=== PATIENT | female | born 1960 | race Caucasian/White ===

== ENCOUNTER 2023-12-08 17:49 | Inpatient (IN) | payer MEDICAID ==
[~2023-12-08] VITALS: Ht 160 cm; Wt 62.1 kg
[2023-12-08] MEDS ORDERED: Z GUARD REMEDY 4 OZ OINT TP PRN (18:00)
[2023-12-08] MEDS ORDERED: ONDANSETRON HCL/PF 4 MG/2 ML VIAL IVP PRN (18:00)
[2023-12-08] MEDS ORDERED: MAG HYDROX/AL HYDROX/SIMETH 30 ML UDC PO PRN (18:00)
[2023-12-08] MEDS ORDERED: MAGNESIUM HYDROXIDE 30 ML UDC PO PRN (18:00)
[2023-12-08 18:30] VITALS: BP 163/79; TEMP 97.8; O2SAT 97
[2023-12-08] MEDS: IV NS 0.9% 1,000 ML IV PRN (18:52)
[2023-12-08] MEDS: CLONIDINE HCL 0.1 MG TABLET PO PRN (18:52)
[2023-12-08 19:45] LABS: BASOPHILS % (AUTO) 0.7 % (0.0-2.0); EOSINOPHILS # (AUTO) 0.2 K/uL (0.0-0.7); HEMATOCRIT 44 % (33-45); HEMOGLOBIN 14.2 g/dL (11.5-14.8); LYMPHOCYTES # (AUTO) 1.9 K/uL (0.8-4.8); LYMPHOCYTES % (AUTO) 27.4 % (20.0-44.0); MEAN CORPUSCULAR HEMOGLOBIN 28 PG (26.0-33.0); MEAN CORPUSCULAR HGB CONC 33 g/dl (31.0-36.0); MEAN CORPUSCULAR VOLUME 85 fL (82-100); MONOCYTES # (AUTO) 0.6 K/uL (0.1-1.30); MONOCYTES % (AUTO) 8.9 % (2.0-12.0); NEUTROPHILS # (AUTO) 4.2 K/uL (1.8-8.9); PLATELET COUNT (AUTO) 346 K/uL (150-450); RED CELL DISTRIBUTION WIDTH 14.2 % (11.5-15.0)
[2023-12-08 19:52] LABS: CALCIUM, SERUM 9.4 mg/dL (8.5-10.1); CREATININE 0.6 mg/dL (0.6-1.3); POTASSIUM 3.2 mmol/L (3.5-5.1)
[2023-12-08 20:22] VITALS: BP 151/77; TEMP 97.5; O2SAT 96
[2023-12-08] MEDS: ENOXAPARIN SODIUM 40 MG/0.4 ML DISP.SYRIN SQ SCH (21:00)
[2023-12-08 21:07] LABS: APPEARANCE,URINE SLIGHTLY CLOUDY (CLEAR); BILIRUBIN,URINE NEGATIVE (NEGATIVE); BLOOD, URINE 3+ Ery/uL (NEGATIVE); COLOR,URINE YELLOW (YELLOW); KETONES,URINE TRACE mg/dL (NEGATIVE); LEUKOCYTE ESTERASE ,URINE 3+ (NEGATIVE); NITRITE, URINE NEGATIVE (NEGATIVE); PH,URINE 7.5 (5.0-8.0); PROTEIN,URINE 1+ mg/dl (NEGATIVE); UGLUCOSE NEGATIVE (NEGATIVE); UROBILINOGEN,URINE 0.2 EU/dL (0.2)
[2023-12-08 21:08] LABS: ADD URINE CULTURE YES; BACTERIA,URINE 2+ /HPF (None Seen); RBC,URINE 51-80 /HPF (0-2); WBC,URINE 51-80 /HPF (0-3)
[2023-12-08] MEDS: POTASSIUM CL. PREMIX PERIPHER. 50 ML IV ONE (21:09)
[2023-12-08] MEDS ORDERED: POTASSIUM CL. PREMIX PERIPHER. 50 ML IV ONE (22:00)
[2023-12-09 06:52] LABS: BASOPHILS % (AUTO) 0.4 % (0.0-2.0); EOSINOPHILS # (AUTO) 0.2 K/uL (0.0-0.7); EOSINOPHILS % (AUTO) 2.3 % (0.0-6.0); HEMATOCRIT 42 % (33-45); HEMOGLOBIN 13.7 g/dL (11.5-14.8); LYMPHOCYTES # (AUTO) 1.9 K/uL (0.8-4.8); LYMPHOCYTES % (AUTO) 25.4 % (20.0-44.0); MEAN CORPUSCULAR HEMOGLOBIN 28 PG (26.0-33.0); MEAN CORPUSCULAR HGB CONC 32 g/dl (31.0-36.0); MEAN CORPUSCULAR VOLUME 86 fL (82-100); MONOCYTES # (AUTO) 0.5 K/uL (0.1-1.30); MONOCYTES % (AUTO) 7.4 % (2.0-12.0); NEUTROPHILS # (AUTO) 4.8 K/uL (1.8-8.9); NEUTROPHILS % (AUTO) 64.5 % (43.0-81.0); PLATELET COUNT (AUTO) 321 K/uL (150-450); RED CELL DISTRIBUTION WIDTH 13.9 % (11.5-15.0); WHITE BLOOD COUNT (AUTO) 7.4 K/uL (4.3-11.0)
[2023-12-09 07:06] LABS: CALCIUM, SERUM 8.6 mg/dL (8.5-10.1); CREATININE 0.6 mg/dL (0.6-1.3); MAGNESIUM 1.6 mg/dL (1.8-2.4); PHOSPHORUS 2.8 mg/dL (2.5-4.9); POTASSIUM 3.3 mmol/L (3.5-5.1)
[2023-12-09 09:13] VITALS: BP 143/70; TEMP 97.2; O2SAT 98
[2023-12-09] MEDS: MAGNESIUM OXIDE 400 MG TABLET PO ONE (10:10)
[2023-12-09] MEDS: POTASSIUM CHLORIDE 20 MEQ TAB.PRT.SR PO SCH (10:10)
[2023-12-09] MEDS: CEFTRIAXONE 1 G in IV D5W 50 ML IV SCH (12:05)
[2023-12-09 12:26] VITALS: BP 162/77; TEMP 97.4; O2SAT 97
[2023-12-09 16:44] VITALS: BP 152/84; TEMP 97.4; O2SAT 96
[2023-12-09 20:25] VITALS: BP 135/70; TEMP 98.2; O2SAT 95
[2023-12-10 07:59] LABS: CALCIUM, SERUM 8.8 mg/dL (8.5-10.1); CREATININE 0.6 mg/dL (0.6-1.3); POTASSIUM 3.3 mmol/L (3.5-5.1)
[2023-12-10 08:00] VITALS: BP 174/76; TEMP 98.2; O2SAT 96
[2023-12-10] MEDS ORDERED: CEFD300C3 PO (08:54)
[2023-12-10] MEDS: POTASSIUM CHLORIDE 20 MEQ TAB.PRT.SR PO ONE (10:57)
[2023-12-10 16:00] VITALS: BP 166/81; TEMP 98.3; O2SAT 97
[2023-12-10 20:00] VITALS: BP 135/70; TEMP 98.1; O2SAT 97
[2023-12-11 07:00] VITALS: BP 160/89; TEMP 97.3; O2SAT 98
[2023-12-11 07:14] LABS: BASOPHILS % (AUTO) 0.7 % (0.0-2.0); EOSINOPHILS # (AUTO) 0.4 K/uL (0.0-0.7); EOSINOPHILS % (AUTO) 5.8 % (0.0-6.0); HEMATOCRIT 43 % (33-45); HEMOGLOBIN 13.9 g/dL (11.5-14.8); LYMPHOCYTES % (AUTO) 32.4 % (20.0-44.0); MEAN CORPUSCULAR HEMOGLOBIN 28 PG (26.0-33.0); MEAN CORPUSCULAR HGB CONC 33 g/dl (31.0-36.0); MEAN CORPUSCULAR VOLUME 86 fL (82-100); MONOCYTES # (AUTO) 0.5 K/uL (0.1-1.30); MONOCYTES % (AUTO) 8.3 % (2.0-12.0); NEUTROPHILS # (AUTO) 3.3 K/uL (1.8-8.9); NEUTROPHILS % (AUTO) 52.8 % (43.0-81.0); PLATELET COUNT (AUTO) 350 K/uL (150-450); RED BLOOD CELL COUNT(AUTO) 4.97 MIL/uL (4.0-5.2); RED CELL DISTRIBUTION WIDTH 13.8 % (11.5-15.0); WHITE BLOOD COUNT (AUTO) 6.2 K/uL (4.3-11.0)
[2023-12-11 07:25] LABS: CALCIUM, SERUM 9.2 mg/dL (8.5-10.1); CREATININE 0.6 mg/dL (0.6-1.3); MAGNESIUM 1.9 mg/dL (1.8-2.4); PHOSPHORUS 3.2 mg/dL (2.5-4.9); POTASSIUM 3.7 mmol/L (3.5-5.1)
[2023-12-11] MEDS ORDERED: NIFE30TA91 PO (08:50)
[2023-12-11] MEDS: NIFEdipine XL (30MG) 30 MG TAB PO SCH (08:55)
[2023-12-11 11:08] LABS: CALCIUM, SERUM 9.6 mg/dL (8.5-10.1); CREATININE 0.6 mg/dL (0.6-1.3); POTASSIUM 3.5 mmol/L (3.5-5.1)
[2023-12-11 11:13] LABS: BASOPHILS % (AUTO) 0.6 % (0.0-2.0); EOSINOPHILS # (AUTO) 0.4 K/uL (0.0-0.7); EOSINOPHILS % (AUTO) 5.1 % (0.0-6.0); HEMATOCRIT 45 % (33-45); HEMOGLOBIN 14.4 g/dL (11.5-14.8); LYMPHOCYTES # (AUTO) 2.1 K/uL (0.8-4.8); MEAN CORPUSCULAR HEMOGLOBIN 27 PG (26.0-33.0); MEAN CORPUSCULAR HGB CONC 32 g/dl (31.0-36.0); MEAN CORPUSCULAR VOLUME 86 fL (82-100); MONOCYTES # (AUTO) 0.6 K/uL (0.1-1.30); MONOCYTES % (AUTO) 7.9 % (2.0-12.0); NEUTROPHILS # (AUTO) 4.2 K/uL (1.8-8.9); NEUTROPHILS % (AUTO) 57.4 % (43.0-81.0); PLATELET COUNT (AUTO) 378 K/uL (150-450); RED BLOOD CELL COUNT(AUTO) 5.25 MIL/uL (4.0-5.2); RED CELL DISTRIBUTION WIDTH 14.1 % (11.5-15.0); WHITE BLOOD COUNT (AUTO) 7.4 K/uL (4.3-11.0)
[2023-12-11 16:00] VITALS: BP 158/86; TEMP 97.5; O2SAT 97
[2023-12-11 21:43] VITALS: TEMP 98.4
[2023-12-11 21:44] VITALS: BP 178/83; TEMP 98.4; O2SAT 95
[2023-12-11] MEDS: MIRTAZAPINE 15 MG TABLET PO SCH (21:46)
[2023-12-11] MEDS: ACETAMINOPHEN 325 MG TABLET PO PRN (21:47)
[2023-12-12 08:00] VITALS: BP 165/99; TEMP 98.8; O2SAT 98
[2023-12-12 09:15] LABS: BASOPHILS # (AUTO) 0.1 K/uL (0.0-0.2); BASOPHILS % (AUTO) 0.7 % (0.0-2.0); EOSINOPHILS # (AUTO) 0.4 K/uL (0.0-0.7); HEMATOCRIT 46 % (33-45); HEMOGLOBIN 15.2 g/dL (11.5-14.8); LYMPHOCYTES # (AUTO) 1.9 K/uL (0.8-4.8); LYMPHOCYTES % (AUTO) 21.9 % (20.0-44.0); MEAN CORPUSCULAR HEMOGLOBIN 28 PG (26.0-33.0); MEAN CORPUSCULAR HGB CONC 33 g/dl (31.0-36.0); MEAN CORPUSCULAR VOLUME 85 fL (82-100); MONOCYTES # (AUTO) 0.7 K/uL (0.1-1.30); MONOCYTES % (AUTO) 8.1 % (2.0-12.0); NEUTROPHILS # (AUTO) 5.7 K/uL (1.8-8.9); NEUTROPHILS % (AUTO) 65.3 % (43.0-81.0); PLATELET COUNT (AUTO) 395 K/uL (150-450); RED CELL DISTRIBUTION WIDTH 13.8 % (11.5-15.0); WHITE BLOOD COUNT (AUTO) 8.7 K/uL (4.3-11.0)
[2023-12-12 09:54] LABS: CREATININE 0.6 mg/dL (0.6-1.3); POTASSIUM 3.3 mmol/L (3.5-5.1)
[2023-12-12] MEDS ORDERED: ASPI-1169 PO (10:23)
[2023-12-12] MEDS ORDERED: ATOR40TA PO (10:23)
[2023-12-12] MEDS: ATORVASTATIN 40 MG TABLET PO SCH (10:30)
[2023-12-12] MEDS: ASPIRIN 81 MG TAB.CHEW PO SCH (11:22)
[2023-12-12] MEDS: POTASSIUM CHLORIDE 20 MEQ TAB.PRT.SR PO ONE (11:23)
[2023-12-12 13:40] LABS: THYROID STIMULATING HORMONE 0.59 uIU/mL (0.358-3.74)
[2023-12-12 16:00] VITALS: BP 162/106; TEMP 97.4; O2SAT 92
[2023-12-12] MEDS ORDERED: NIFE-34 PO (16:05)
[2023-12-12] MEDS: LORAZEPAM 1 MG TABLET PO PRN (20:12)
[2023-12-13 07:00] VITALS: BP 175/113; TEMP 98.4; O2SAT 100
[2023-12-13] MEDS: NIFEdipine XL (30MG) 30 MG TAB PO SCH (08:42)
[2023-12-13 10:07] LABS: FOLIC ACID 10.7 ng/mL (>3.0)
[2023-12-13 16:00] VITALS: BP 133/96; TEMP 98.6; O2SAT 95
[2023-12-13 20:00] VITALS: BP 138/78; TEMP 98.1; O2SAT 95
[2023-12-14 07:00] VITALS: BP 129/86; TEMP 97.4; O2SAT 96
[2023-12-14] MEDS: NIFEdipine XL (30MG) 30 MG TAB PO SCH (08:58)
[2023-12-14] MEDS ORDERED: NIFE-35 PO (12:07)
[2023-12-14 16:00] VITALS: BP 137/44; TEMP 97.4; O2SAT 91
[2023-12-14 20:00] VITALS: BP 156/90; TEMP 99.7; O2SAT 94
[2023-12-15 08:00] VITALS: BP 132/79; TEMP 99.3; O2SAT 95
[2023-12-15] MEDS ORDERED: TRAZ-182 PO (12:24)
[2023-12-15 20:27] VITALS: BP_SYST 130; BP_SYST 151; BP_DIAS 52; BP_DIAS 95; TEMP 97.2; O2SAT 94
[2023-12-15 22:09] LABS: VITAMIN B1 THIAMINE,WB 127.2 nmol/L (66.5-200.0)
[2023-12-16 08:00] VITALS: BP 120/82; TEMP 97.9; O2SAT 95
[2023-12-16 08:25] VITALS: BP 120/82
== END 2023-12-16 10:45 | disposition home or self-care (01) | DRG 463 ==
LOC: TELE 17:49 → MED 21:17
PROVIDERS: ADMIT Internal Medicine; ATTEND Internal Medicine
DX: N39.0 Urinary tract infection, site not specified (principal); G93.41 Metabolic encephalopathy; B96.89 Other specified bacterial agents as the cause of diseases classified elsewhere; E83.42 Hypomagnesemia; E86.0 Dehydration; F39 Unspecified mood [affective] disorder; Z91.199 Patient's noncompliance with other medical treatment and regimen due to unspecified reason; Z87.891 Personal history of nicotine dependence; F43.22 Adjustment disorder with anxiety; I10 Essential (primary) hypertension; R41.9 Unspecified symptoms and signs involving cognitive functions and awareness; R73.9 Hyperglycemia, unspecified
CPT/HCPCS: 36415; 70450-TC; 80048-TC; 81001; 82607-TC; 83735-TC; 83921; 84100-TC; 84425; 84443-TC; 85025-TC; 87040-TC; 87086-TC; 97110-TC; 97116-TC; 97530-TC; A4223; G0378; J0696; J1650; J3480; J7030; J7050; J7060